=== PATIENT | male | born 1985 | race Asian ===

== ENCOUNTER 2024-11-07 10:02 | Outpatient (RCR) | payer OTHER, SELFPAY | END 2024-11-28 23:59 | disposition home or self-care (01) | LOC: SPT 10:02 | PROVIDERS: Visit Provider Family Medicine | DX: M75.41 Impingement syndrome of right shoulder (principal) | CPT/HCPCS: 97161 ==

== ENCOUNTER 2025-01-05 15:02 | Outpatient (CLI) | payer OTHER, MEDICAID, SELFPAY ==
--- NOTE | 2025-01-05 15:15 | MR_ITS ---
WS: [id number] MRI RIGHT SHOULDER HISTORY: R SHOULDER IMPINGEMENT SYNDROME COMPARISON: None available. TECHNIQUE: Multiplanar sequences of the shoulder joint are submitted. No significant degenerative changes of the is seen joint. No osteophyte. There is a very small amount of fluid in the subacromial and subdeltoid bursa. Enthesopathy along the inferior acromion with mild impingement. No os acromiale. Biceps tendon appears appropriate. Biceps tendon is being slightly displaced by the osteophyte from the lesser tuberosity. There is a small amount of increased fluid associated with the distal subscapularis tendon and the biceps tendon. Slight superior elevation of the humeral head. The glenoid cavity is vertical. There is no displacement. No significant marrow edema. No muscle atrophy or edema. No rotator cuff tear. Increased edema and signal within the distal subscapularis tendon. Coracohumeral ligament is intact. No labral tear. MR/MR shoulder RT wo con* [id number] IMPRESSION: 1. Mild subacromial impingement upon the distal supraspinatus with mild subacr omial and subdeltoid bursal fluid. 2. Mild displacement of the biceps tendon by an osteophyte associated with the lesser tuberosity. 3. There is also increased edema near the biceps tendon and the distal subscap ularis tendon. No definite tears are identified. Suspect there may be associate d soft tissue injury. This is also closely associated with the bony protuberanc e of the lesser tuberosity. Subscapularis tendinopathy. No tear identified. 4. Mild subacromial impingement.
== END 2025-01-05 15:03 | disposition home or self-care (01) ==
LOC: RAD 15:12
PROVIDERS: PCP Family Medicine; Visit Provider Family Medicine
DX: M75.41 Impingement syndrome of right shoulder (principal); R93.6 Abnormal findings on diagnostic imaging of limbs; M67.813 Other specified disorders of tendon, right shoulder; M77.8 Other enthesopathies, not elsewhere classified
CPT/HCPCS: 73221